=== PATIENT | female | born 1955 | race Caucasian/White ===

== ENCOUNTER 2020-07-04 18:32 | Outpatient (CLI) | payer SELFPAY | END 2020-07-04 18:33 | disposition EMS.NT | LOC: EMS 18:32 | DX: Z04.1 Encounter for examination and observation following transport accident (principal) ==

== ENCOUNTER 2020-11-14 08:00 | Outpatient (CLI) | payer OTHER ==
--- NOTE | 2020-11-14 15:43 | XRAY Report ---
PROCEDURE: Foot 3 View RT INDICATIONS: RIGHT FOOT SPRAIN TECHNIQUE: 3 views of the foot were acquired. COMPARISON: None FINDINGS: Bones: No fractures or dislocations. No suspicious bony lesions. A well-corticated ossification ad jacent to the cuneiform on the lateral view does not appear acute. Soft tissues: No tibiotalar joint effusion. Achilles tendon appears normal. IMPRESSION: No acute abnormality of the right foot. Reviewed by: Jordan Malave on 11/14/2020 3:41 PM PDT Approved by: Jordan Malave on 11/14/2020 3:41 PM PDT Station ID: [id number]
== END 2020-11-14 23:59 | disposition home or self-care (01) ==
LOC: DI.S 08:00
PROVIDERS: ATTEND Emergency Medicine
DX: S93.691A Other sprain of right foot, initial encounter (principal)